=== PATIENT | female | born 1925 ===

== ENCOUNTER 2016-10-09 12:30 | Inpatient (IN) | payer MEDICARE, OTHER ==
[~2016-10-09] VITALS: Ht 152.4 cm; Wt 84.3 kg
--- NOTE | ~2016-10-09 | CON ---
PATIENT'S NAME: MICHAEL AGUILAR [facility] AGE: 89 Y [address] ROOM: [id number] [place], [place] [address] LOCATION: GPCU ADMIT DATE: 10/09/2016 Consultation DISCHARGE DATE: FAMILY PHYSICIAN: Jose Smart MD ATTENDING PHYSICIAN: KESHAV CORLEY DATE OF CONSULTATION: 10/09/2016 REFERRING PHYSICIAN: Arely Calderon MD HISTORY OF PRESENT ILLNESS: An 89-year-old female patient of Dr. Corley. Dear Dr. Corley: Thank you for asking me to see Mrs. Aguilar who is an 89-year-old female patient, whom I had taken care of in the past. She is a long-term resident and apparently she has not been feeling well in the last 2 weeks. She had called about 10 days to our office and apparently her medication was cut down in dose. She was supposed to call back a report and they called back and suggested that she is not feeling any better. Apparently, they did not hear back from the office and I am not sure why that is, but the patient has been getting progressively weaker to the point where she can hardly get out of bed. She is lightheaded when she stands up and has not been going to the dining room to go and eat. She has not been having any chest pain. She is currently breathing reasonably well. There is no paroxysmal nocturnal dyspnea, orthopnea, palpitations even though she has prior history of AFib. She has no ankle swelling, lightheadedness, dizziness, or syncope. The patient had an echocardiogram done in August of 2015, which showed moderate LVH with a normal ejection fraction and pulmonary pressures in the mid 30s. She had some chest pain. So, a stress test was performed in August of 2016, which showed a fixed defect involving the distal anterior wall. She continued to have the chest pain. So, she underwent CT coronary angiography, which revealed mild coronary artery disease and a calcium score of 90. Her medications were adjusted at that time. In addition, she was found to have a large hiatal hernia and she was also suffering from herpes zoster to T4 distribution. There is previous history of respiratory failure and she is on oxygen 24/7. There is history of paroxysmal nocturnal dyspnea with CHADS2-VASc score, which is relatively high for her. She is not on any anticoagulation because of her history of GI bleed in the past. The patient has history of hypertension. She is not diabetic. Her lipids are known to be elevated. She is a nonsmoker and there is no family history of PATIENT'S NAME: MICHAEL AGUILAR [facility] AGE: 89 Y [address] ROOM: [place] [address] [facility] ADMIT DATE: 10/09/2016 Consultation DISCHARGE DATE: FAMILY PHYSICIAN: Jose Smart MD ATTENDING PHYSICIAN: KESHAV CORLEY premature coronary artery disease. She did have some secondhand smoke exposure. There is no history of rheumatic fever or a heart murmur. She has history of congestive heart failure and paroxysmal AFib. MEDICATIONS: On admission include: 1. Acetaminophen 650 mg every 8 hours. 2. Aricept 5 mg at bedtime. 3. Alphagan 1 drop t.i.d. 4. Fluticasone 1 spray to the nostril daily. 5. Hydrocodone/acetaminophen 1 tablet every 4 hours. 6. Anoro Ellipta 1 puff every day. 7. Calcium carbonate/vitamin D3 1 tablet b.i.d. 8. Betoptic 1 drop every day. 9. Gabapentin 300 mg t.i.d. 10. Cetirizine 10 mg q.h.s. 11. PreserVision. 12. Artificial tears. 13. Metoprolol 12.5 mg b.i.d. 14. Atorvastatin 40 mg a day. 15. Clopidogrel 75 mg a day. 16. Protonix 40 mg a day. 17. Aldactone 25 mg a day. 18. Carafate 1 g every 6 hours a.c. and h.s. 19. Furosemide 20 mg in the morning. 20. Lumigan eye drops. 21. Prednisone Forte eye drops. 22. Benazepril 10 mg every day. 23. Trusopt eye drops. 24. Loperamide. ALLERGIES: CEPHALEXIN, SULFAMETHOXAZOLE, IMITREX, AND ERYTHROMYCIN. PAST MEDICAL HISTORY: 1. Chronic respiratory failure. 2. History of GI bleed secondary to stomach ulcers. 3. Gastroesophageal reflux disease. 4. Peptic ulcer disease. 5. Diverticulosis. 6. DJD. 7. Restless legs syndrome. 8. Ovarian cancer. 9. Urosepsis. 10. Tonsillectomy. PATIENT'S NAME: MICHAEL AGUILAR [facility] AGE: 89 Y [address] ROOM: [place] [address] LOCATION: GPCU ADMIT DATE: 10/09/2016 Consultation DISCHARGE DATE: FAMILY PHYSICIAN: Jose Smart MD ATTENDING PHYSICIAN: KESHAV CORLEY 11. Hysterectomy. 12. Appendectomy. 13. Chemotherapy for ovarian cancer. 14. History of shingles. 15. Glaucoma. 16. Dementia. SOCIAL HISTORY: The patient lives in an assisted living facility. She denies abusing alcohol. Her appetite and weight are stable. Sleep is fair. FAMILY HISTORY: No premature coronary artery disease. REVIEW OF SYSTEMS: 1. Allergies. 2. Poor vision. PHYSICAL EXAMINATION: VITAL SIGNS: On examination, her blood pressure is in the 160s, heart rate is in the 40s, respirations 14, afebrile, oxygen saturation appears to be in the low 90s without any oxygen on. HEENT: Normal. NECK: Supple with no JVD, thyromegaly, lymphadenopathy, or carotid bruit. PMI is not well located. First and second heart sounds are regular. There are no added sounds or murmurs. CHEST: Clear to auscultation. ABDOMEN: Soft, obese. Bowel sounds are normally present. EXTREMITIES: Reveal no edema. Central nervous system is intact. LABORATORY DATA: A 12-lead EKG today reveals sinus bradycardia with left axis deviation and nonspecific interventricular conduction defect, heart rate is 43 beats per minute. ASSESSMENT: Generalized weakness secondary to possibly bradycardia. We will get D-dimer as well as sepsis workup before and get orthostatic blood pressures before deciding how to proceed with her management. She might benefit from a permanent pacemaker placement if she continues to be bradycardic. She is only on a very small dose of Lopressor at this time and I doubt this is responsible for her symptoms. Again, I appreciate this opportunity to participate in the care of Mrs. Aguilar. PATIENT'S NAME: MICHAEL AGUILAR [facility] AGE: 89 Y [address] ROOM: [place] [address] LOCATION: GPCU ADMIT DATE: 10/09/2016 Consultation DISCHARGE DATE: FAMILY PHYSICIAN: Jose Smart MD ATTENDING PHYSICIAN: KESHAV CORLEY MD STEPHANIE RUELAS/modl /[id number] d: 10/10/16211 t: 10/15/16 1901, CONSULTATION REPORT
--- NOTE | ~2016-10-09 | HP ---
PATIENT'S NAME: MICHAEL BEYER [facility] AGE: 89 Y [address] ROOM: [address] [address] [facility] ADMIT DATE: 10/09/2016 History & Physical DISCHARGE DATE: FAMILY PHYSICIAN: Jose Smart MD ATTENDING PHYSICIAN: KESHAV CORLEY DATE OF SERVICE: CHIEF COMPLAINT: Bradycardia and hypotension. HISTORY OF PRESENT ILLNESS: This is an 89-year-old female with a history of aljz-jw-jujejvuz coronary artery disease. The patient presented to her primary care physician office with hypotension, lightheadedness, and bradycardia. She was then transferred to [facility] by Dr. Jose Smart. Hospitalist team was asked to admit the patient. At the time of my examination, the patient states that she has been having diarrhea for about couple of weeks. Her diarrhea has now resolved. She also has been feeling very weak and has generalized weakness. She feels like she is also lightheaded as well. She has not been able to do as much. She uses a walker for ambulation. She currently lives in an assisted living facility. The patient states that she started having lightheadedness about 3 weeks ago. She has also noticed that she is hypothermic and has been told about low temperature by the jail staff. She tried to call her primary care physician, but did not receive a response for about 3 weeks. The patient is hypothermic currently as well. She is also bradycardic currently. The patient states that she has been lightheaded when she gets up. She denies any fever history. She states that she feels chills and also has urinary symptoms. Denies burning sensation currently. She states that she had urinary tract infection in the past as well. She denies any chest pain. Denies any shortness of breath more than usual. Denies any abdominal pain. No other complaints at this point in time. REVIEW OF SYSTEMS: A 10-point review of systems was done and was otherwise negative except as mentioned above. HOME MEDICATIONS: Per OCT. FAMILY HISTORY: Father because of massive SC. Mother had liver failure from too much chloroform. Sister with Alzheimer disease . PATIENT'S NAME: MICHAEL BEYER [facility] AGE: 89 Y [address] ROOM: [address] [address] LOCATION: GPCU ADMIT DATE: 10/09/2016 History & Physical DISCHARGE DATE: FAMILY PHYSICIAN: Jose Smart MD ATTENDING PHYSICIAN: KESHAV CORLEY PAST SURGICAL HISTORY: 1. Hysterectomy. 2. Bilateral cataract surgery. 3. Vein stripping bilateral legs. 4. Tonsillectomy. 5. Ovaries removed. 6. Appendectomy. 7. Glaucoma surgery. 8. Trabeculectomy. PAST MEDICAL HISTORY: 1. History of coronary artery disease. 2. Ovarian cancer history. 3. Frequent UTI. 4. Seasonal allergies. 5. Glaucoma. 6. Hypertension. 7. Dyslipidemia. 8. Asthma. 9. Emphysema. 10. Colitis. 11. GERD. 12. Hiatal hernia. SOCIAL HISTORY: She currently lives in an assisted living facility. Denies smoking or alcohol use. PHYSICAL EXAMINATION: VITAL SIGNS: Temperature 94.0; pulse 45, regular; respirations 14; blood pressure 142/63; and saturation 95% on room air. GENERAL: The patient is alert and oriented x3, answers all questions appropriately, in no acute distress. HEENT: Head: Normocephalic, atraumatic. Pupils are equal, round, and reactive to light. Extraocular muscles are intact. Oropharynx moist. NECK: Supple. No nuchal rigidity. HEART: The patient is bradycardic. Regular rhythm. LUNGS: Clear to auscultation bilaterally. ABDOMEN: Soft, nontender, nondistended. Bowel sounds are present. EXTREMITIES: No clubbing, cyanosis, or edema. VASCULAR: Pulses 2+ distally bilaterally. NEUROLOGIC: The patient is alert and oriented x3. Follows all commands. Moves all extremities. Cranial nerves 2 through 12 grossly intact. Strength 5/5 in bilateral upper and lower extremities. Sensation intact in bilateral PATIENT'S NAME: MICHAEL BEYER [facility] AGE: 89 Y [address] ROOM: [address] [place] [id number] LOCATION: GPCU ADMIT DATE: 10/09/2016 History & Physical DISCHARGE DATE: FAMILY PHYSICIAN: Jose Smart MD ATTENDING PHYSICIAN: KESHAV CORLEY upper and lower extremities. Gait is not assessed. DIAGNOSTIC STUDIES: Lactate 2.0. CPK 148. Troponin I less than 0.04. ProBNP 572. PT 10.4, INR 1.0, PTT 33. UA showed specific gravity 1.005, pH of 7.4, showed leukocytes and negative for bacteria. Urine sodium random 51. CK-MB 9.0. Urine osmolality 201, serum osmolality 273. Free T4 of 1.0, TSH 3.34. Procalcitonin level less than 0.05. Chest x-ray showed bibasilar atelectasis or consolidation. Blood cultures pending at this point of time. EKG showed sinus bradycardia with a rate of 43 beats per minute and left axis deviation, CO interval 176 milliseconds. ASSESSMENT AND PLAN: An 89-year-old female, presenting with hypotension and bradycardia. 1. Bradycardia: Unclear about the source of bradycardia. The patient is on a beta-shahriar at home but a very small dose. I will hold her beta- shahriar. Cardiology consult will be obtained for the patient. We will trend cardiac enzymes. She recently had a stress test done that was found to be negative. She has mwfk-lm-okebsvky coronary artery disease. Differential for bradycardia also includes hypothermia currently. Unsure about the cause of hypothermia. 2. Hypotension: The patient was hypotensive in the clinic. Her hypotension seems to have resolved now. I will hydrate her gently with IV fluids for now. 3. Hypothermia: The patient states that she was hypothermic for about 3 weeks. We will try passive and active external rewarming. If she does not respond, we will give her warm saline. Cause of hypothermia is unknown at this point of time. I will do a sepsis workup for the patient. 4. Questionable sepsis: Blood cultures have been obtained. I will place the patient on Levaquin. She has bibasilar consolidation currently. Monitor closely. I will broaden antibiotic spectrum if she continues to have hypothermia or her inflammatory markers came out elevated. 5. Nrqn-ym-ijnhmzmc coronary artery disease: Continue home medications including Lipitor and blood pressure pills. She is also on Plavix, continue Plavix. 6. History of dementia: Continue Aricept. 7. Dyslipidemia: Continue statin. 8. Congestive heart failure: Continue Lasix. 9. Gastroesophageal reflux disease: The patient has history of hiatal hernia. Continue Protonix and sucralfate. 10. History of gastrointestinal bleed in the past: Monitor hemoglobin closely. 11. Code status: The patient stated that she wanted CPR but no intubation. PATIENT'S NAME: MICHAEL BEYER [facility] AGE: 89 Y [address] ROOM: [place] [address] [facility] ADMIT DATE: 10/09/2016 History & Physical DISCHARGE DATE: FAMILY PHYSICIAN: Jose Smart MD ATTENDING PHYSICIAN: KESHAV CORLEY The patient is okay for CPR, but is do not intubate. KESHAV CORLEY MD MT/nati /[id number] D: [id number] T: [id number] HISTORY & PHYSICAL
--- NOTE | ~2016-10-09 | OR ---
PATIENT'S NAME: MICHAEL BEYER [facility] AGE: 89 Y [address] ROOM: [place] [address] LOCATION: GPCU ADMIT DATE: 10/09/2016 OR/Procedure Report DISCHARGE DATE: FAMILY PHYSICIAN: Jose Smart MD ATTENDING PHYSICIAN: KESHAV CORLEY SURGEON: Arely Calderon MD [employer]ER [employer]NER: DATE OF PROCEDURE: 10/14/2016 INDICATIONS: 1. Symptomatic sinus bradycardia. 2. Oracio-tachy syndrome. 3. Recurrent episodes of syncope. DESCRIPTION OF PROCEDURE: After obtaining informed consent, the patient was brought to the Catheterization Laboratory on an empty stomach, and prepped and draped using standard sterile precautions. A 1% Xylocaine was used to obtain local anesthesia over the left subclavian site. Modified Seldinger technique was used to place two guidewires into the IVC inferior vena cava. A 3-cm long incision was created connecting the two guidewires. Blunt dissection was used to create a pocket for the pacemaker. The ventricular lead was initially placed, which is a [employer] MRI IS-1 bipositive fix 52-cm lead, model number 7741, serial number [id number]. This had a stimulation threshold of 0.7 V at a pulse width of 0.4 msec, impedance was 1036 ohms, current was 0.7 mA, and R-waves were 25 mV. This was sewn to the underlying muscle. The atrial lead was next placed, which was a [employer] Ingevity MRI IS bipositive fixation 45-cm lead, model number 7740, serial number [id number]. This had a stimulation threshold of 1.4 V at a pulse width of 1.0 msec. Pacing impedance was 1110 ohms. Current is 1.3 mA. Intrinsic P-wave is 1.7 mV. This lead was sewn to the underlying muscle. Next, a [employer] MRIDR IS-1, model number 4L111, serial number [id number], device was attached to the leads, and the device and the leads were then sewn to the underlying muscle. The pocket was then irrigated with antibiotic irrigation. The patient's skin was sewn in two layers. The patient's right atrium was left at 0.5 mV sensitivity, with output of 3.0 V at 1 msec. RV right ventricle was left at 2.5 mV sensitivity and output was auto at 0.4 msec. The pacing mode was DDDR mode, rhythm IQ off, lower rate of 70, upper rate of 120, MSR of 120 ppm, PAV delay of 140 msec to 220 msec, DONIS delay of 130 msec to 200 msec, AV search was on at 350 msec, and PVARP at 240 msec to 320 msec. Sensor, right-right pacing with MV on, motion-based pacing PATIENT'S NAME: MICHAEL BEYER [facility] AGE: 89 Y [address] ROOM: [place] [address] LOCATION: GPCU ADMIT DATE: 10/09/2016 OR/Procedure Report DISCHARGE DATE: FAMILY PHYSICIAN: Jose Smart MD ATTENDING PHYSICIAN: KESHAV CORLEY with the accelerator on. Sensing method was fixed. [place] [employer] store at 160 beats per minute. ATR mode switch is 160 beats per minute. Atrial flutter response was off. VRR was off. Rate smoothing was off. Sudden oracio response was off. Pace safe. RVAC was on. POSTOPERATIVE CONDITION: The patient tolerated the procedure well. COMPLICATIONS: There were no complications noted. MD STEPHANIE RUELAS/nati /[id number] d: 10/14/162300 t: 10/15/16 1903, OPERATIVE SUMMARY
--- NOTE | ~2016-10-09 | DS ---
PATIENT'S NAME: MICHAEL AGUILAR [facility] AGE: 89 Y [address] ROOM: [place] [address] LOCATION: GPCU ADMIT DATE: 10/09/2016 Discharge Summary DISCHARGE DATE: 10/16/2016 FAMILY PHYSICIAN: Jose Smart MD ATTENDING PHYSICIAN: Vasile Savage PRINCIPAL DISCHARGE DIAGNOSIS: Symptomatic bradycardia. SECONDARY DIAGNOSES: 1. Paroxysmal atrial fibrillation. 2. Acute kidney injury superimposed on chronic kidney disease. 3. Systemic inflammatory response syndrome. 4. Essential hypertension. 5. Coronary artery disease, diastolic congestive heart failure. 6. Recurrent episodes of syncope. 7. Dementia, mild. 8. Chronic respiratory failure. 9. Gastroesophageal reflux disease. 10. Glaucoma. CONSULTATIONS: Cardiology, Arely Calderon MD, on 10/09/2016. PROCEDURES PERFORMED: Pacemaker placement of [place] [employer] MRI- DR IS-1 on 10/14/2016. COMPLICATIONS: None. BRIEF HISTORY: Ms. Aguilar is an 89-year-old female, who resides at [facility], and had not been feeling well for the two weeks prior to admission. She had discussed her symptoms with Dr. Calderon, who adjusted medications for her, but she still did not feel well. She has been getting weaker to the point of not being able to get out of bed with significant lightheadedness and falling without chest pain. In addition, the patient states she has been having diarrhea for a couple of weeks, but it was resolved. She just felt generally weak with lightheadedness. When she was admitted, she was hypothermic and bradycardic. She was speaking, but she was found to be hypothermic and bradycardic. Along with her hypothermia, she had chills and urinary symptoms. So, she was admitted for further evaluation and management of these problems. LABORATORY DATA: Urinalysis showed clear yellow urine with the low specific gravity of 1.005, leukocytes of 500, and white blood cells of 5 to 10. However, there were no blood culture results on that specimen. PATIENT'S NAME: MICHAEL AGUILAR [facility] AGE: 89 Y [address] ROOM: [place] [address] LOCATION: GPCU ADMIT DATE: 10/09/2016 Discharge Summary DISCHARGE DATE: 10/16/2016 FAMILY PHYSICIAN: Jose Smart MD ATTENDING PHYSICIAN: Vasile Savage Blood cultures were negative at five days. Other pertinent laboratory data on admission, lactate of 2.0. Troponin was normal. Her serum osmolality was 273. Her procalcitonin was less than 0.05. DIAGNOSTIC STUDIES: Her EKG showed sinus bradycardia with a rate of 43 and left-axis deviation. HOSPITAL COURSE: The patient was started on Levaquin, and she completed a seven-day course of that. The patient tolerated the pacemaker placement without difficulty. However, yesterday morning, she seemed to have a vagal episode, and was mildly dehydrated with elevated creatinine to 1.4; this improved to 1.2 after a liter of hydration over the last 24 hours. She currently has stable vital signs, which are blood pressure of 128/59, pulse of 70, respirations of 18, and her temperature of 98. The patient was out of bed in a chair. She was sleeping quite soundly when I came to see her, but woke up and was clearly oriented. She was able to discuss her medications, and tell me that her eemjbvhx-zn-uxb is coming to pick her up later today. She will return to [facility] at that time. The daughter-in- law and patient are in agreement with the discharge plan. INSTRUCTIONS AT DISCHARGE: DIET: As tolerated. ACTIVITY: As tolerated. FOLLOWUP: Followup appointment with 1. Dr. Smart within the next three days to get a CBC complete blood count and a renal panel. 2. Dr. Calderon in two weeks to follow up on the pacemaker placement. She will have Home Health care at the Assisted Living Facility. Physical therapist has recommended ongoing therapy for strengthening. MEDICATIONS AT TIME OF DISCHARGE: 1. Tylenol 650 p.o. every eight hours p.r.n. for arthritic pain. 2. Lipitor 40 mg p.o. at bedtime. 3. Benazepril 5 mg p.o. at bedtime. This is a dose reduction from 10 mg. PATIENT'S NAME: MICHAEL AGUILAR [facility] AGE: 89 Y [address] ROOM: [address] [address] LOCATION: GPCU ADMIT DATE: 10/09/2016 Discharge Summary DISCHARGE DATE: 10/16/2016 FAMILY PHYSICIAN: Jose Smart MD ATTENDING PHYSICIAN: Vasile Savage 4. Metoprolol is discontinued. 5. Lumigan eye drops, one drop to each eye at bedtime. 6. Aricept is discontinued. 7. Alphagan drops to the right eye t.i.d. 8. Calcium carbonate 600 p.o. b.i.d. 9. Zyrtec is discontinued. 10. Clopidogrel 75 mg p.o. daily. 11. Trusopt drops, one drop in the right eye twice daily. 12. Flonase daily. 13. Lasix is discontinued. 14. Aldactone is discontinued. 15. Neurontin 300 mg p.o. t.i.d. 16. Protonix 40 mg daily. 17. Sucralfate one hour before meals and at bedtime. 18. [place] p.r.n. 19. Ellipta one puff every day. 20. Betoptic one drop ophthalmic in each eye daily. 21. PreserVision softgels b.i.d. 22. Artificial tears four times a day p.r.n. CONDITION AT DISCHARGE: Good. Thanks very much for your help, I appreciate it. GARCIA ODONNELL MD LM/nati /[id number] d: 10/17/16 0303 t: 10/21/16 1202, DISCHARGE SUMMARY
[~2016-10-09 12:30] MED LIST: ALDACTONE25 MG PO; ALLEGRA180 MG PO; ALPHAGAN P5 ML OPHTH; ANORO ELLIPTA1 EACH INH; ARICEPT5 MG PO; ARTIFICIAL TEAR15 ML OPHTH; ASACOL HD800 MG PO; ASCORBIC ACID500 MG PO; AUGMENTIN875 MG PO; BETOPTIC0.5 % OPHTH; BLINK TEARS OPHTH; CALCIUM 600 +1 EA10 PO; CALCIUM 600 +1 EAC3 PO; CARAFATE1 GM PO; CENTRUM COMPLE1 EACH PO; CIPRO250 MG PO; COMBIGAN EYE DRO5 ML OPHTH; CORDARONE,PACE200 MG PO; DELTASONE5 MG PO; FEOSOL325 MG PO; FLAGYL500 MG PO; FLONASE 50 MCG/16 GM NOSE; IMDUR30 MG PO; LACTINEX (FLORA1 TAB PO; LASIX40 MG PO; LEVAQUIN 750 M750 MG PO; LEVAQUIN500 MG PO; LIPITOR40 MG PO; LOPRESSOR25 MG PO; LOTENSIN10 MG PO; LOTREL 5-10 MG1 EACH PO; LUMIGAN 0.01%2.5 ML OPHTH; LYRICA75 MG PO; MACROBID100 MG PO; MOBIC15 MG PO; NEURONTIN300 MG PO; NORCO 5-325 MG1 TAB PO; NORCO 5-325 TA1 EACH PO; NORVASC2.5 MG PO; NORVASC5 MG PO; OXYGEN INH; PLAVIX75 MG PO; PRAVACHOL40 MG PO; PREDNISONE10 MG PO; PRESERVISION A1 EAC1 PO; PRESERVISION A1 EACH PO; PRILOSEC20 M1 PO; PRILOSEC20 MG PO; PROTONIX40 MG PO; SIMBRINZA; SIMBRINZA 1%-0.28 ML IOC; SIMBRINZA 1%-0.28 ML OPHTH; SPIRIVA HANDIHA1 KIT; THERA-VITE W/ B1 TAB PO; TRUSOPT 2% OPTH10 ML OPHTH; TYLENOL ARTHRI650 MG PO; VALTREX1000 MG PO; XALATAN2.5 ML IOC; ZOCOR40 MG PO; ZYRTEC10 MG PO
[2016-10-09] MEDS ORDERED: LUMIGAN 0.01%2.5 ML OPHTH (14:16)
[2016-10-09] MEDS ORDERED: LASIX20 MG PO (14:16)
[2016-10-09] MEDS ORDERED: LOTENSIN10 MG PO (14:18)
[2016-10-09] MEDS ORDERED: PRED FORTE 1%5 ML OPHTH (14:18)
[2016-10-09] MEDS ORDERED: TRUSOPT 2% OPTH10 ML OPHTH (14:20)
[2016-10-09] MEDS ORDERED: IMODIUM A-D2 MG PO (14:29)
[2016-10-09 14:41] LABS: BILIRUBIN URINE NEGATIVE (NEGATIVE); BLOOD URINE NEGATIVE /UL (NEGATIVE); COLOR URINE YELLOW (YELLOW); GLUCOSE URINE NEGATIVE (NEGATIVE); KETONE URINE NEGATIVE (NEGATIVE); LEUKOCYTES URINE 500 /UL (NEGATIVE); NITRITE URINE NEGATIVE (NEGATIVE); PROTEIN URINE NEGATIVE (NEGATIVE); SPEC GRAVITY URINE 1.005 (1.003-1.035); TURBIDITY URINE CLEAR (CLEAR); UROBILINOGEN URINE NORMAL (NORMAL)
[2016-10-09 15:07] LABS: BACTERIA URINE NEGATIVE (NEGATIVE); EPITHELIAL URINE NEGATIVE #/HPF (NEGATIVE); RBC URINE NEGATIVE #/HPF (NEGATIVE)
[2016-10-09 15:50] LABS: PROTIME 10.4 SECONDS (9.6-11.1)
[2016-10-09 16:01] LABS: CPK 148 IU/L (21-215)
[2016-10-09 20:55] LABS: BASOPHIL % 0.7 %; EOSINOPHIL # 0.1 K/uL (0.0-0.5); EOSINOPHIL % 1.7 %; HEMATOCRIT 39.3 % (30.0-46.0); HEMOGLOBIN 13.2 g/dL (10.0-15.0); IMMATURE GRANULOCYTE % 0.3 %; LYMPHOCYTE # 0.7 K/uL (0.8-4.0); LYMPHOCYTE % 22.2 %; MCH 29.9 pg (27.0-34.0); MCHC 33.6 gm/dL (32.0-36.5); MCV 89.1 fl (83.0-98.0); MONOCYTE # 0.4 K/uL (0.0-1.0); MONOCYTE % 12.3 %; MPV 9.7 fl (9.4-12.4); NEUTROPHIL # (ANC) 1.8 K/uL (1.8-7.8); NEUTROPHIL % 62.8 %; NRBC % 0 /100WBC (0-0.00); PLATELET COUNT 138 K/uL (150-450); RBC 4.41 M/uL (3.00-5.00); RDW-CV 13.9 % (11.9-14.6); WBC 2.9 K/uL (4.0-11.0)
[2016-10-09 21:16] LABS: ANION GAP 14.3 (10.0-19.0); CALCIUM 8.9 mg/dL (8.5-10.5); CREATININE 1.2 mg/dL (0.5-1.1); POTASSIUM 4.3 mMol/L (3.7-5.1)
[2016-10-09 21:17] LABS: CPK 138 IU/L (21-215)
[2016-10-10 04:10] LABS: BASOPHIL % 0.5 %; HEMATOCRIT 35.8 % (30.0-46.0); HEMOGLOBIN 12.1 g/dL (10.0-15.0); IMMATURE GRANULOCYTE % 0.2 %; LYMPHOCYTE # 0.6 K/uL (0.8-4.0); LYMPHOCYTE % 13.5 %; MCH 30.1 pg (27.0-34.0); MCHC 33.8 gm/dL (32.0-36.5); MCV 89.1 fl (83.0-98.0); MONOCYTE # 0.5 K/uL (0.0-1.0); MONOCYTE % 12.4 %; MPV 9.8 fl (9.4-12.4); NEUTROPHIL # (ANC) 3.1 K/uL (1.8-7.8); NEUTROPHIL % 72.4 %; NRBC % 0 /100WBC (0-0.00); PLATELET COUNT 149 K/uL (150-450); RBC 4.02 M/uL (3.00-5.00); WBC 4.2 K/uL (4.0-11.0)
[2016-10-10 04:25] LABS: CALCIUM 8.4 mg/dL (8.5-10.5); CREATININE 1.4 mg/dL (0.5-1.1)
[2016-10-11 07:58] LABS: BASOPHIL % 0.5 %; EOSINOPHIL # 0.1 K/uL (0.0-0.5); EOSINOPHIL % 1.4 %; HEMATOCRIT 39.7 % (30.0-46.0); HEMOGLOBIN 13.1 g/dL (10.0-15.0); IMMATURE GRANULOCYTE % 0.2 %; LYMPHOCYTE # 0.9 K/uL (0.8-4.0); LYMPHOCYTE % 21.8 %; MCH 29.7 pg (27.0-34.0); MONOCYTE # 0.5 K/uL (0.0-1.0); MPV 9.9 fl (9.4-12.4); NEUTROPHIL # (ANC) 2.7 K/uL (1.8-7.8); NEUTROPHIL % 64.1 %; NRBC % 0 /100WBC (0-0.00); PLATELET COUNT 140 K/uL (150-450); RBC 4.41 M/uL (3.00-5.00); RDW-CV 14.2 % (11.9-14.6); WBC 4.2 K/uL (4.0-11.0)
[2016-10-11 08:18] LABS: ALBUMIN 3.4 gm/dL (3.5-5.0); ANION GAP 13.1 (10.0-19.0); CREATININE 1.2 mg/dL (0.5-1.1); PHOSPHORUS 2.7 mg/dL (2.5-4.9); POTASSIUM 4.1 mMol/L (3.7-5.1)
[2016-10-15 05:16] LABS: ANION GAP 12.9 (10.0-19.0); CALCIUM 9.1 mg/dL (8.5-10.5); CREATININE 1.4 mg/dL (0.5-1.1); MAGNESIUM 2.1 mg/dL (1.3-2.6); POTASSIUM 3.9 mMol/L (3.7-5.1)
[2016-10-15 13:01] LABS: BASOPHIL % 0.4 %; EOSINOPHIL # 0.1 K/uL (0.0-0.5); HEMATOCRIT 35.9 % (30.0-46.0); HEMOGLOBIN 11.8 g/dL (10.0-15.0); IMMATURE GRANULOCYTE % 0.3 %; LYMPHOCYTE # 0.7 K/uL (0.8-4.0); LYMPHOCYTE % 9.2 %; MCH 29.9 pg (27.0-34.0); MCHC 32.9 gm/dL (32.0-36.5); MCV 91.1 fl (83.0-98.0); MONOCYTE # 0.7 K/uL (0.0-1.0); MONOCYTE % 9.8 %; MPV 9.6 fl (9.4-12.4); NEUTROPHIL # (ANC) 5.6 K/uL (1.8-7.8); NEUTROPHIL % 79.3 %; NRBC % 0 /100WBC (0-0.00); PLATELET COUNT 153 K/uL (150-450); RBC 3.94 M/uL (3.00-5.00); RDW-CV 14.5 % (11.9-14.6)
[2016-10-16 05:30] LABS: ALBUMIN 3.4 gm/dL (3.5-5.0); ANION GAP 11.7 (10.0-19.0); CALCIUM 8.8 mg/dL (8.5-10.5); CREATININE 1.2 mg/dL (0.5-1.1); PHOSPHORUS 2.9 mg/dL (2.5-4.9); POTASSIUM 3.7 mMol/L (3.7-5.1)
[2016-10-16] MEDS ORDERED: MIRALAX17 GM PO (13:50)
== END 2016-10-16 14:10 | disposition home health service (06) | DRG 243 ==
LOC: GPCU 12:33
PROVIDERS: Internal Medicine; Internal Medicine Interventional Cardiology; Nurse Practitioner Family; ADMIT Family Medicine
PROC: 0JH606Z Insertion of Pacemaker, Dual Chamber into Chest Subcutaneous Tissue and Fascia, Open Approach (ICD-10-PCS; principal; 2016-10-14)
PROC: 02HK3JZ Insertion of Pacemaker Lead into Right Ventricle, Percutaneous Approach (ICD-10-PCS; principal; 2016-10-14)
PROC: 02H63JZ Insertion of Pacemaker Lead into Right Atrium, Percutaneous Approach (ICD-10-PCS; principal; 2016-10-14)
DX: I49.5 Sick sinus syndrome (principal); E87.1 Hypo-osmolality and hyponatremia; N17.9 Acute kidney failure, unspecified; T68.XXXA Hypothermia, initial encounter; J96.11 Chronic respiratory failure with hypoxia; I50.32 Chronic diastolic (congestive) heart failure; R65.10 Systemic inflammatory response syndrome (SIRS) of non-infectious origin without acute organ dysfunction; F03.90 Unspecified dementia, unspecified severity, without behavioral disturbance, psychotic disturbance, mood disturbance, and anxiety; I25.10 Atherosclerotic heart disease of native coronary artery without angina pectoris; I95.9 Hypotension, unspecified; E78.5 Hyperlipidemia, unspecified; K21.9 Gastro-esophageal reflux disease without esophagitis; Z85.43 Personal history of malignant neoplasm of ovary; H40.9 Unspecified glaucoma; J45.909 Unspecified asthma, uncomplicated; G25.81 Restless legs syndrome; Z66 Do not resuscitate; I48.0 Paroxysmal atrial fibrillation; I12.9 Hypertensive chronic kidney disease with stage 1 through stage 4 chronic kidney disease, or unspecified chronic kidney disease; N18.3 Chronic kidney disease, stage 3 (moderate); R55 Syncope and collapse
CPT/HCPCS: C1785; C1898; J1644; J1956; J2250; J3010; J3370; J7030; J7050; P9047

== ENCOUNTER → 2016-10-30 | Outpatient (CLI) | payer MEDICARE, OTHER ==
[~2016-10-30] MED LIST changes: +IMODIUM A-D2 MG PO; +LASIX20 MG PO; +MIRALAX17 GM PO; +PRED FORTE 1%5 ML OPHTH
[2016-10-30 10:19] LABS: CALCIUM 9.3 mg/dL (8.5-10.5); CREATININE 1.3 mg/dL (0.5-1.1); TOTAL PROTEIN 7.5 g/dL (6.0-8.4)
[2016-10-30 10:20] LABS: TOTAL BILIRUBIN 0.5 mg/dL (0.0-1.5)
== END | disposition disaster alternative care site (69) ==
LOC: LGSOS 10:01
PROVIDERS: Internal Medicine Interventional Cardiology
DX: E78.5 Hyperlipidemia, unspecified (principal); R00.1 Bradycardia, unspecified

== ENCOUNTER → 2016-11-13 | Outpatient (CLI) | payer MEDICARE, OTHER ==
[2016-11-13 10:48] LABS: CALCIUM 9.3 mg/dL (8.5-10.5); CREATININE 1.2 mg/dL (0.5-1.1)
== END | disposition disaster alternative care site (69) ==
LOC: LGSOS 10:35
PROVIDERS: Internal Medicine Interventional Cardiology
DX: I10 Essential (primary) hypertension (principal); R00.1 Bradycardia, unspecified

== ENCOUNTER → 2017-01-15 | Outpatient (CLI) | payer MEDICARE, OTHER ==
[2017-01-15 11:39] LABS: CALCIUM 9.3 mg/dL (8.5-10.5); CREATININE 1.1 mg/dL (0.5-1.1)
== END ==
LOC: LGSOS 10:21
PROVIDERS: Internal Medicine Interventional Cardiology
DX: I48.0 Paroxysmal atrial fibrillation (principal)

== ENCOUNTER → 2017-04-16 | Outpatient (CLI) | payer MEDICARE, OTHER ==
[2017-04-16 11:26] LABS: ALBUMIN 3.7 gm/dL (3.5-5.0); CALCIUM 9.2 mg/dL (8.5-10.5); CREATININE 1.2 mg/dL (0.5-1.1); TOTAL BILIRUBIN 0.5 mg/dL (0.0-1.5); TOTAL PROTEIN 7.2 g/dL (6.0-8.4)
== END ==
LOC: LGSOS 10:38
PROVIDERS: Internal Medicine Interventional Cardiology
DX: E78.5 Hyperlipidemia, unspecified (principal)